=== PATIENT | male | born 1995 | race Hispanic/Latino ===

== ENCOUNTER 2018-12-24 17:38 | Emergency (ER) | payer OTHER ==
[2018-12-24] MEDS ORDERED: ONDANSETRON HCL 4 MG/2 ML VIAL ONE ×2 (17:59→21:33)
[2018-12-24] MEDS ORDERED: SODIUM CHLORIDE 0.9% 1000ML 1,000 ML IV ONE ×3 (18:00→22:18)
[2018-12-24 18:10] LABS: APPEARANCE,URINE Clear (CLEAR); BILIRUBIN,URINE Negative (NEGATIVE); COLOR,URINE Yellow (YELLOW); GLUCOSE, URINE (UA) Negative (NEGATIVE); KETONES,URINE Negative (NEGATIVE); LEUKOCYTE ESTERASE ,URINE Negative (NEGATIVE); NITRATE,URINE Negative (NEGATIVE); OCCULT BLOOD,URINE Negative (NEGATIVE); PROTEIN,URINE Negative (NEGATIVE); UROBILINOGEN,URINE 0.2 mg/dL (0.2-1.0)
[2018-12-24 18:10] LABS: BASOPHILS % (AUTO) 0.6 % (0.0-5.0); EOSINOPHILS % (AUTO) 0.7 % (0.0-8.0); HEMATOCRIT 45.7 % (42-54); LYMPHOCYTES % (AUTO) 4.3 % (21.0-51.0); MEAN CORPUSCULAR HEMOGLOBIN 30.7 pg (27.0-33.0); MEAN CORPUSCULAR HGB CONC 35.3 g/dL (32.0-36.0); MEAN CORPUSCULAR VOLUME 87.1 fL (79-99); MONOCYTES % (AUTO) 5.7 % (3.0-13.0); NEUTROPHILS % (AUTO) 88.7 % (40.0-77.0); NUCLEATED RED BLOOD CELLS 0.1 % (0.0-0.19); PLATELET COUNT (AUTO) 222 K/uL (130-400); RED BLOOD CELL COUNT(AUTO) 5.24 MIL/uL (4.50-6.20); RED CELL DISTRIBUTION WIDTH 12.8 % (11.0-15.5); WHITE BLOOD COUNT (AUTO) 20.1 K/uL (4.8-10.8)
[2018-12-24 18:52] LABS: POTASSIUM 3.5 mmol/L (3.5-5.1)
[2018-12-24 18:56] LABS: ALBUMIN 4.4 g/dL (3.5-5.0); BILIRUBIN,TOTAL 2.4 mg/dL (0.2-1.0); INR 0.95 (0.85-1.15); PARTIAL THROMBOPLASTIN TIME 33.5 SEC (26.3-35.5); TOTAL PROTEIN, SERUM 8.5 g/dL (6.0-8.3)
[2018-12-24] MEDS ORDERED: ACETAMINOPHEN EXTRA STRENGTH 500 MG TABLET ONE ×2 (19:10→23:52)
[2018-12-24] MEDS ORDERED: IOHEXOL-350 75 ML VIAL IV ONE (20:05)
[2018-12-24] MEDS ORDERED: LEVOFLOXACIN 500 MG/D5W 100 ML 100 ML ONE (20:31)
[2018-12-24] MEDS ORDERED: METRONIDAZOLE 500MG/100ML BAG 100 ML ONE (20:31)
[2018-12-24] MEDS ORDERED: IBUPROFEN 200 MG TAB ONE (22:39)
== END 2018-12-25 00:06 | disposition home or self-care (01) ==
LOC: EDH 17:38
DX: A09 Infectious gastroenteritis and colitis, unspecified (principal); E86.0 Dehydration
CPT/HCPCS: 36415; 74177; 80053; 81003; 82150; 82270; 82550; 83605 ×2; 83690; 85025; 85610; 85730; 87040 ×2; 87804 ×2; 93005; 96361 ×2; 96365; 96366; 96368; 96375; 96376; 99285; J1956; J2405 ×2; J3490; J7030 ×3; Q9967

== ENCOUNTER 2019-12-04 22:20 | Emergency (ER) | payer OTHER ==
[2019-12-04] MEDS ORDERED: KETOROLAC TROMETHAMINE 60 MG/2 ML VIAL ONE (23:57)
== END 2019-12-05 01:30 | disposition home or self-care (01) ==
LOC: EDH 22:20
DX: R07.9 Chest pain, unspecified (principal); Z87.891 Personal history of nicotine dependence
CPT/HCPCS: 71046; 93005; 96372; 99283; J1885

== ENCOUNTER 2022-02-21 10:46 | Emergency (ER) | payer OTHER ==
[~2022-02-21] VITALS: Ht 172.7 cm; Wt 108.9 kg
[2022-02-21 10:50] VITALS: BP 131/77
[2022-02-21] MEDS ORDERED: IBUPROFEN 600 MG TABLET PO ONE (11:30)
[2022-02-21] MEDS ORDERED: P-EP-94 PO (11:48)
== END 2022-02-21 12:19 | disposition home or self-care (01) ==
LOC: EDH 10:46
DX: J06.9 Acute upper respiratory infection, unspecified (principal); Z20.822 Contact with and (suspected) exposure to COVID-19; Z79.1 Long term (current) use of non-steroidal anti-inflammatories (NSAID)
CPT/HCPCS: 99283; 87635; 87880; 87804 ×2; C9803

== ENCOUNTER 2022-04-23 01:40 | Emergency (ER) | payer OTHER ==
[~2022-04-23] VITALS: Ht 172.7 cm; Wt 104.3 kg
[~2022-04-23 01:40] MED LIST: P-EP-94 PO
[2022-04-23 03:59] LABS: BASOPHILS % (AUTO) 0.2 % (0.0-5.0); EOSINOPHILS % (AUTO) 1.8 % (0.0-8.0); HEMATOCRIT 46.1 % (42-54); LYMPHOCYTES % (AUTO) 8.3 % (21.0-51.0); MEAN CORPUSCULAR HEMOGLOBIN 30.2 pg (27.0-33.0); MEAN CORPUSCULAR HGB CONC 35.1 g/dL (32.0-36.0); MEAN CORPUSCULAR VOLUME 85.8 fL (79-99); MONOCYTES % (AUTO) 7.9 % (3.0-13.0); NEUTROPHILS % (AUTO) 81.2 % (40.0-77.0); PLATELET COUNT (AUTO) 210 K/uL (130-400); RED BLOOD CELL COUNT(AUTO) 5.37 MIL/uL (4.50-6.20); RED CELL DISTRIBUTION WIDTH 12.2 % (11.0-15.5); WHITE BLOOD COUNT (AUTO) 12.7 K/uL (4.8-10.8)
[2022-04-23] MEDS ORDERED: 0.9%NACL 1000ML 1,000 ML IV ONE (04:00)
[2022-04-23] MEDS ORDERED: ONDANSETRON 4MG INJ IVP ONE ×2 (04:00→05:00)
[2022-04-23 04:14] LABS: CREATININE 0.9 mg/dL (0.5-1.5); POTASSIUM 3.5 mmol/L (3.5-5.1)
[2022-04-23 04:18] LABS: ALBUMIN 4.1 g/dL (3.5-5.0); TOTAL PROTEIN, SERUM 7.9 g/dL (6.0-8.3)
[2022-04-23] MEDS ORDERED: 0.9%NACL 1000ML 1,000 ML IV STA (04:52)
[2022-04-23] MEDS ORDERED: PANTOPRAZOLE 40 MG/VIAL IVP ONE (05:00)
[2022-04-23] MEDS ORDERED: AZITHROMYCIN 250 MG TABLET PO ONE (05:00)
[2022-04-23] MEDS ORDERED: PANT40GR PO (07:06)
[2022-04-23 07:13] VITALS: BP 112/66
== END 2022-04-23 07:20 | disposition home or self-care (01) ==
LOC: EDH 01:40
DX: K29.20 Alcoholic gastritis without bleeding (principal); Z20.822 Contact with and (suspected) exposure to COVID-19
CPT/HCPCS: 99284; 96374; 87635; 96361; 96375; 80053; 83690; 85025; 87804 ×2; 36415; 96376; C9803; J7030; J2405 ×2; C9113

== ENCOUNTER 2023-12-16 23:09 | Emergency (ER) | payer SELFPAY ==
[~2023-12-16] VITALS: Ht 172.7 cm; Wt 111.1 kg
[~2023-12-16 23:09] MED LIST changes: +PANT40GR PO
[2023-12-16 23:26] VITALS: BP 160/80; PULSE 85; RESP 16; O2SAT 98
[2023-12-16] MEDS: teTANUS/diphthERIA TOXOID [ADULT] 0.5 ML VIAL IM ONE (23:38)
== END 2023-12-17 00:20 | disposition home or self-care (01) ==
LOC: EDH 23:09
DX: S61.412A Laceration without foreign body of left hand, initial encounter (principal); Z79.899 Other long term (current) drug therapy; Z90.49 Acquired absence of other specified parts of digestive tract; W26.0XXA Contact with knife, initial encounter; Y93.89 Activity, other specified; Y92.89 Other specified places as the place of occurrence of the external cause; Y99.8 Other external cause status
CPT/HCPCS: 12001; 90471; 90714

== ENCOUNTER 2023-12-25 19:21 | Emergency (ER) | payer OTHER ==
[~2023-12-25] VITALS: Ht 172.7 cm; Wt 117.0 kg
[2023-12-25 19:23] VITALS: BP 147/77; PULSE 66; RESP 20; TEMP 98.1
== END 2023-12-25 19:54 | disposition home or self-care (01) ==
LOC: EDH 19:21
DX: S61.412D Laceration without foreign body of left hand, subsequent encounter (principal); Z48.02 Encounter for removal of sutures; Z79.899 Other long term (current) drug therapy; X58.XXXD Exposure to other specified factors, subsequent encounter
CPT/HCPCS: 99281

== ENCOUNTER 2024-08-17 22:54 | Emergency (ER) | payer OTHER ==
[~2024-08-17] VITALS: Ht 172.7 cm; Wt 115.7 kg
--- NOTE | 2024-08-17 22:58 | NUR ---
COVID, FLU AND STREP SWABS COLLECTED AND SENT
[2024-08-17 23:32] LABS: SARS-CoV-2, RNA, NAAT NEGATIVE SARS CoV-2 (NEGATIVE)
[2024-08-17 23:37] LABS: RAPID GROUP A STREP positive (NEGATIVE)
[2024-08-17 23:41] LABS: INFLUENZA TYPE A NEGATIVE FOR TYPE A (NEGATIVE); INFLUENZA TYPE B NEGATIVE FOR TYPE B (NEGATIVE)
[2024-08-18] MEDS: ceFAZolin SODIUM 2 GM VIAL IVP STA (00:49)
[2024-08-18] MEDS ORDERED: CEPH500B PO (00:54)
--- NOTE | 2024-08-18 00:55 | ERN ---
General Chief Complaint: Sore Throat Stated Complaint: SORE THROAT Time Seen by MD: 23:07 Source: patient History of Present Illness Initial Comments [age] year year old healthy male who has had a sore throat for a week with difficulty talking and and eating. He has been taking 250 mg of azithromycin with no improvement in his symptoms. Timing/Duration: 1 week Allergies: Coded Allergies: No Known Allergies (Unverified Allergy, Unknown, 02/21/22) Home Meds Active Scripts Pantoprazole Sodium (Pantoprazole Sodium) 40 Mg Granpkt.dr, 40 MG PO BID for 3 Days, #9 PACK Prov:JOANN MUNGUIA MD 04/23/22 Loratadine/Pseudoephedrine (Claritin-D 12 Hour Tablet) 1 Each Tab.er.12h, 1 EACH PO BID, #12 TAB Prov:KIANA MARTINEZ 02/21/22 Past Medical History Past Medical History: No Pertinent History Past Surgical History: Appendectomy Social History Social History: ETOH ROS Dictation Patient also feels a sinus stuffiness Constitutional: (+) chills, (+) fever EENTM: (-) eye pain, (-) blurred vision, (-) tearing, (-) double vision, (-) ear pain, (-) ear discharge, (-) nose pain, (-) nose congestion, (-) throat pain, (-) Throat swelling, (-) mouth pain, (-) tooth pain, (-) mouth swelling, (-) other documentation Respiratory: (+) cough Cardiovascular: (-) chest pain, (-) edema, (-) palpitations, (-) syncope, (-) dyspnea on exertion, (-) other documentation Gastrointestinal/Abdominal: (-) nausea, (-) vomiting, (-) diarrhea, (-) abdo ryder pain, (-) abdominal distention, (-) constipation, (-) rectal bleeding, (-) dark stool/melena, (-) other documentation Musculoskeletal: (-) Neck pain, (-) back pain, (-) Flank Pain, (-) joint pain, (-) joint swelling, (-) muscle pain, (-) muscle stiffness, (-) gout, (-) other documentation Skin: (-) laceration, (-) contusion, (-) abrasion, (-) abscess, (-) rash, (-) change in color, (-) change in hair, (-) change in nails, (-) diaphoresis, (-) dryness, (-) other documentation Physical Exam Physical Exam Dictation Patient difficulty talking with a very quiet voice. General Appearance: (+) mild distress Orientation: (+) alert Head/Face Trauma: No Eye: bilateral eye normal inspection, bilateral eye PERRL, bilateral eye EOMI Ear, Nose, Throat Comment Definitely erythema in the posterior pharynx Respiratory: (+) chest non-tender, (+) lungs clear, (+) well ventilated Heart: (+) regular, (+) no gallop Results Laboratory and Microbiology Lab and Micro Result Laboratory Tests Test 08/17/24 22:56 Influenza Type A Antigen NEGATIVE FOR TYPE A Influenza Type B Antigen NEGATIVE FOR TYPE B SARS-CoV-2, RNA, NAAT NEGATIVE SARS CoV-2 Group A Streptococcus Rapid positive (NEGATIVE) *A MDM Nasal swabs were ordered by the nurse and the patient is positive for strep throat. I will give him 2 g of IV Ancef push and discharge him with a week's course of Keflex. ED Course Orders Procedure Category Date Status Time Covid Rna Naat LAB 08/17/24 Complete 22:57 Influenza Type A & B, LAB 08/17/24 Complete Rapid 22:57 Rapid (Group A Strep) LAB 08/17/24 Complete 22:57 Cefazolin Sodium PHA 08/18/24 Complete (Ancef) 00:38 Current Medications Medications (Trade) Dose Ordered Sig/Bea Route PRN Reason Start Time Stop Time Status Last Admin Dose Admin Cefazolin Sodium (Ancef) 2 gm ONCE STAT IVP 08/18/24 00:38 08/18/24 00:41 DC Vital Signs Date Time Temp Pulse Resp B/P (MAP) Pulse Ox O2 Delivery O2 Flow Rate FiO2 08/17/24 22:55 98.1 87 20 148/85 99 Room Air DX & DISP Disposition: Discharge Departure Impression: Primary Impression: Strep sore throat Condition: Stable Scripts Cephalexin Monohydrate (Keflex) 500 Mg Cap 500 MG PO QID for 7 Days, #28 CAP Prov: JENNIFER VACA MD 08/18/24 Referrals: CADENCE BELLO (PCP) JENNIFER VACA MD Aug 18, 2024 00:55
[2024-08-18 01:21] VITALS: BP 144/83; PULSE 81; RESP 18; TEMP 98.4; O2SAT 98
== END 2024-08-18 01:22 | disposition home or self-care (01) ==
LOC: EDH 22:54
DX: J02.0 Streptococcal pharyngitis (principal); Z20.822 Contact with and (suspected) exposure to COVID-19; Z79.2 Long term (current) use of antibiotics; Z79.899 Other long term (current) drug therapy; Z90.49 Acquired absence of other specified parts of digestive tract
CPT/HCPCS: 99283; 87635; 87880; 87804 ×2; 96374; J0690

== ENCOUNTER 2024-11-09 22:55 | Emergency (ER) | payer OTHER ==
[~2024-11-09] VITALS: Ht 172.7 cm; Wt 117.7 kg
[~2024-11-09 22:55] MED LIST changes: +CEPH500B PO
--- NOTE | 2024-11-09 23:12 | EKG ---
[facility] Test Date: 2024-11-09 Test Time: 23:09:00 Pat Name: NICOLE ANAYA Department: [facility] Room: Gender: M Project Manager: [id number] : 1995 Requested By: RITU WANG Order Number: [id number] Reading MD: Cleveland Lainez Measurements Intervals [place] Rate: 67 P: 18 NH: 134 QRS: 35 QRSD: 93 T: 26 QT: 393 QTc: 415 Interpretive Statements Sinus rhythm Compared to ECG 12/05/2019 00:15:23 No significant changes Electronically Signed On 11-11-2024 00:01:33 CDT by Cleveland Lainez Please click the below link to view image of tracing.
[2024-11-09 23:13] LABS: APPEARANCE,URINE CLEAR (CLEAR); GLUCOSE, URINE (UA) NEGATIVE (NEGATIVE); LEUKOCYTE ESTERASE ,URINE NEGATIVE Leu/uL (NEGATIVE); NITRATE,URINE NEGATIVE (NEGATIVE); OCCULT BLOOD,URINE NEGATIVE (NEGATIVE)
[2024-11-09 23:15] LABS: ADD UA MICROSCOPIC NO
[2024-11-09 23:17] LABS: IMMATURE GRANULOCYTE ABSOLUTE 0.05 K/uL (0-1); NUCLEATED RED BLOOD CELLS 0.0 % (0.0-0.19); PLATELET COUNT (AUTO) 232 K/uL (130-400); RED BLOOD CELL COUNT(AUTO) 4.72 MIL/uL (4.50-6.20); RED CELL DISTRIBUTION WIDTH 12.0 % (11.0-15.5); WHITE BLOOD COUNT (AUTO) 12.0 K/uL (4.8-10.8)
[2024-11-09 23:20] LABS: AMPHET/METH SCREEN,URINE NEGATIVE (NEGATIVE); BARBITURATE SCREEN, URINE NEGATIVE (NEGATIVE); CANNABINOID SCREEN,URINE NEGATIVE (NEGATIVE); COCAINE SCREEN,URINE NEGATIVE (NEGATIVE)
[2024-11-09 23:25] LABS: CREATININE 0.8 mg/dL (0.5-1.3); GLOMERULAR FILTR. RATE CALC 124.0 mL/min (>90); GLUCOSE,RANDOM 109.0 mg/dL (70-105); SODIUM SERUM 141.0 mmol/L (136-145); UREA NITROGEN, BLOOD 14.0 mg/dL (7-18)
[2024-11-09 23:35] LABS: CREATINE KINASE, TOTAL 147.0 U/L (21-232)
[2024-11-09] MEDS: MAG/ALUM/SIMETH 30 ML UDCUP PO ONE (23:37)
[2024-11-09] MEDS: LIDOCAINE HCL 2% VISCOUS 15 ML UDCUP PO ONE (23:37)
[2024-11-09] MEDS: DICYCLOMINE HCL 10 MG/5 ML ML PO ONE (23:37)
--- NOTE | 2024-11-10 00:02 | ERN ---
ED Note History of Present Illness Stated Complaint: CHEST PAIN Chief Complaint: Chest Pain Time Seen by MD: 22:59 Time Seen by Midlevel: 22:59 Dictation: The patient is a 29-year-old male with a history of appendectomy who presents to the emergency department with complaints of mid sternal chest pain onset two days ago associated with some shortness of breath. Patient also reports some nausea. Reports that he has had these episodes in the past and they told him he had anxiety. Patient does reports he has been under a lot of stress slightly. Denies any fevers, diarrhea or constipation. Denies any upper respiratory symptoms. Allergies: Coded Allergies: No Known Allergies (Unverified Allergy, Unknown, 02/21/22) Home Meds Active Scripts Cephalexin Monohydrate (Keflex) 500 Mg Cap, 500 MG PO QID for 7 Days, #28 CAP Prov:JENNIFER VACA MD 08/18/24 Pantoprazole Sodium (Pantoprazole Sodium) 40 Mg Granpkt.dr, 40 MG PO BID for 3 Days, #9 PACK Prov:JOANN MUNGUIA MD 04/23/22 Loratadine/Pseudoephedrine (Claritin-D 12 Hour Tablet) 1 Each Tab.er.12h, 1 EACH PO BID, #12 TAB Prov:KIANA MARTINEZ 02/21/22 Past Medical History Past Medical History: No Pertinent History Surgical History: Appendectomy Social History: ETOH RN Note Reviewed/Agreed w/PFSH: Yes Review of System Dictation Constitutional: Negative for fever,chills, and weight loss Eyes: Negative for injury, pain,redness, and discharge ENT: Negative for injury,pain or swelling Cardiovascular: Negative for palpitations, and edema positive for chest pain, Respiratory: Negative for cough, and wheezing, shortness of breath Abdomen/GI: Negative for abdominal pain, vomiting, diarrhea, and constipation positive for nausea Back: Negative for injury and pain : Negative for injury, bleeding and discharge MS/Extremity: Negative for injury and deformity Skin: Negative for rash, and discoloration Neuro: Negative for headache, weakness, numbness, tingling, and seizure Psych: Negative for suicide ideation, homicidal ideation, and hallucinations Initial Vital Sign VS Vital Signs Date Time Temp Pulse Resp B/P (MAP) Pulse Ox O2 Delivery O2 Flow Rate FiO2 11/09/24 22:56 97.0 70 16 123/80 98 Room Air 11/09/24 23:09 0 21 Physical Exam Dictation Vital Signs reviewed General Appearance: Alert, oriented x 3, no acute distress, well developed, nourished. Head and Face: non-traumatic. Eyes: PERRL, pink conjunctivas, eyelid no trauma, anterior chamber with arcus senilis. Ears: Pinnas intact and no signs of trauma or erythema ear canals clear and no discharge TM no erythema Nose: No discharge, no bleeding. Oropharynx: Mouth normal, tongue pink. pharynx clear,no erythema, tonsils no exudates, no abscesses noted, mucous membrane moist Neck: Supple, non-tender, no thyromegaly, no masses, no JVD, no bruits Breast:Deferred Chest:No tenderness, no crepitus, no paradoxical movement, no retractions Lungs:Clear, well-ventilated, symmetric, no rales, no wheezing, no rhonchi, no stridor, good breath sounds bilaterally Heart: Regular rate, regular rhythm, no murmur, no gallops Vascular: no peripheral edema, Abdomen: Soft, positive bowel sounds, nondistended, no guarding, nontender, no rebound, no masses no hepatomegaly, no splenomegaly, no Cornelius's sign, no hernias. Rectal: Deferred Genital: Deferred Neurological: Normal speech, motor function intact, sensory function intact Musculoskeletal: Neck nontender, full range of motion, back nontender, full range of motion, Extremities: nontender, full range of motion Skin: Color pink, dry, no turgor, no rash, no lacerations, no abrasions, no contusions. Lymphatic: Deferred Results (Laboratory/Radiology) Laboratory/Radiology Laboratory Tests Test 11/09/24 23:01 11/09/24 23:11 Urine Color LIGHT-YELLOW (YELLOW) Urine Appearance CLEAR (CLEAR) Urine pH 5.5 (5.0-8.0) Urine Specific [place] 1.019 (1.001-1.031) Urine Protein NEGATIVE mg/dL (NEGATIVE) Urine Glucose (UA) NEGATIVE mg/dL (NEGATIVE) Urine Ketones NEGATIVE mg/dL (NEGATIVE) Urine Occult Blood NEGATIVE (NEGATIVE) Urine Nitrate NEGATIVE (NEGATIVE) Urine Bilirubin NEGATIVE mg/dL (NEGATIVE) Urine Urobilinogen 0.2 mg/dL (0.2-1.0) Urine Leukocyte Esterase NEGATIVE Iron/uL Urine Opiates Screen NEGATIVE (NEGATIVE) Urine Barbiturates Screen NEGATIVE (NEGATIVE) Urine Phencyclidine Screen NEGATIVE (NEGATIVE) Urine Amphetamines Screen NEGATIVE (NEGATIVE) Urine Benzodiazepines Screen NEGATIVE (NEGATIVE) Urine Cocaine Screen NEGATIVE (NEGATIVE) Urine Marijuana (THC) Screen NEGATIVE (NEGATIVE) White Blood Count 12.0 K/uL (4.8-10.8) H Red Blood Count 4.72 MIL/uL (4.50-6.20) Hemoglobin 14.6 g/dL (14.0-18.0) Hematocrit 41.7 % (42-54) L Mean Corpuscular Volume 88.3 fL (79-99) Mean Corpuscular Hemoglobin 30.9 pg (27.0-33.0) Mean Corpuscular Hemoglobin Concent 35.0 g/dL (32.0-36.0) Red Cell Distribution Width 12.0 % (11.0-15.5) Platelet Count 232 K/uL (130-400) Mean Platelet Volume 10.5 fL (7.5-10.5) Immature Granulocyte % (Auto) 0.4 % (0-1) Neutrophils (%) (Auto) 59.2 % (40.0-77.0) Lymphocytes (%) (Auto) 28.0 % (21.0-51.0) Monocytes (%) (Auto) 9.1 % (3.0-13.0) Eosinophils (%) (Auto) 3.1 % (0.0-8.0) Basophils (%) (Auto) 0.2 % (0.0-5.0) Neutrophils # (Auto) 7.1 K/uL (1.8-7.7) Lymphocytes # (Auto) 3.4 K/uL (1.0-4.8) Monocytes # (Auto) 1.1 K/uL (0.1-1.0) H Eosinophils # (Auto) 0.37 K/uL (0.00-0.70) Basophils # (Auto) 0.03 K/uL (0.00-0.20) Absolute Immature Granulocyte (auto 0.05 K/uL (0-1) Nucleated Red Blood Cells 0.0 % (0.0-0.19) Sodium Level 141 mmol/L (136-145) Potassium Level 4.0 mmol/L (3.5-5.1) Chloride Level 105 mmol/L (101-111) Carbon Dioxide Level 26 mmol/L (21-32) Blood Urea Nitrogen 14 mg/dL (7-18) Creatinine 0.8 mg/dL (0.5-1.3) Glomerular Filtration Rate Calc 124 mL/min (>90) Random Glucose 109 mg/dL (70-105) H Total Calcium 8.5 mg/dL (8.5-10.1) Total Creatine Kinase 147 U/L (21-232) # Troponin I High Sensitivity 5 ng/L (4-75) Lipase 94 U/L (16-77) H REASON: CHEST PAIN ORDERING PHYSICIAN: RITU WANG MD PROCEDURE: CXR1VW - CHEST 1VW EXAM: CR Chest, 2 views. CLINICAL HISTORY: Chest pain. COMPARISON: Chest radiograph dated 12/04/2019. FINDINGS: The lungs show no infiltrates or other acute findings. No pleural effusion or pneumothorax. The cardiomediastinal silhouette is within normal limits. No acute osseous abnormality. IMPRESSION: No acute cardiopulmonary process is evident. No interval changes. /[facility] Labs Reviewed?: Yes EKG: (+) rhythm (Sinus rhythm) EKG Comment: Date:11/09/2024 Time:2309 Ventricular rate:67 TN interval:134 QRS duration:93 QT/QTc:493/415 EKG interpretation: Sinus rhythm Reviewed by ED Attending no STEMI ED Course ED Course Orders Procedure Category Date Status Time Vital Signs Per CPOE 11/09/24 Transmitted Routine 22:56 Chest 1vw RAD 11/09/24 Resulted 22:56 12 Lead Ekg Tracing- EKG 11/09/24 Complete Technical 22:56 Oxygen By Nc/Pulse Ox CPOE 11/09/24 Transmitted 22:56 Maintain Iv CPOE 11/09/24 Transmitted 22:56 Iv Insertion CPOE 11/09/24 Transmitted 22:56 Cardiac Monitoring CPOE 11/09/24 Transmitted 22:56 Pulse Oximetry With CPOE 11/09/24 Transmitted Vs And Prn 22:56 Cbc With Differential LAB 11/09/24 Complete 22:56 Activity: Br W/Brp CPOE 11/09/24 Transmitted With Assist 22:56 Creatine Kinase, Total LAB 11/09/24 Complete 22:56 Troponin I High LAB 11/09/24 Complete Sensitivity 22:56 Urinalysis Profile LAB 11/09/24 Complete 22:56 Basic Metabolic Panel LAB 11/09/24 Complete 22:56 Drug Screen Urine LAB 11/09/24 Complete 22:59 Mag/Alum/Simeth 30ml PHA 11/09/24 Complete (Maalox Plus 30ml) 23:30 Lidocaine Hcl 2% PHA 11/09/24 Complete Viscous (Lidocaine Hcl 23:30 Dicyclomine Hcl PHA 11/09/24 Complete (Bentyl 10mg/5ml 23:30 Lipase LAB 11/09/24 Complete 23:38 Current Medications Medications (Trade) Dose Ordered Sig/Bea Route PRN Reason Start Time Stop Time Status Last Admin Dose Admin Al Hydroxide/Mg Hydroxide (MAALox PLUS 30ML) 30 ml ONCE ONCE PO 11/09/24 23:30 11/09/24 23:31 DC 11/09/24 23:37 Dicyclomine HCl (Bentyl 10mg/5ml Syrup) 10 mg ONCE ONCE PO 11/09/24 23:30 11/09/24 23:31 DC 11/09/24 23:37 Lidocaine HCl (Lidocaine HCl 2% Viscous) 10 ml ONCE ONCE PO 11/09/24 23:30 11/09/24 23:31 DC 11/09/24 23:37 Vital Signs Date Time Temp Pulse Resp B/P (MAP) Pulse Ox O2 Delivery O2 Flow Rate FiO2 11/10/24 00:14 98.4 61 18 124/84 100 Room Air* 0 11/09/24 23:09 75 18 127/84 99 Room Air* 0 21 11/09/24 22:56 97.0 70 16 123/80 98 Room Air HEART Score Response (Comments) Value History: Low suspicion (0) 0 EKG: Normal 0 Age: < 45yrs (0) 0 Risk Factors: No known risk factors (0) 0 Initial Troponin: Normal limit (0) 0 HEART Score Risk: Low Risk for MACE (1-3) Total 0 Medical Decision Making MDM The patient is a 29-year-old male with a history of appendectomy who presents to the emergency department with complaints of mid sternal chest pain onset two days ago associated with some shortness of breath. Patient also reports some nausea. Reports that he has had these episodes in the past and they told him he had anxiety. Patient does reports he has been under a lot of stress slightly. Denies any fevers, diarrhea or constipation. Denies any upper respiratory symptoms. CBC showed no leukocytosis, no anemia, chemistry showed no electrolyte imbalance, slightly elevated lipase, patient with no abdominal pain. Negative troponin. EKG showed normal sinus rhythm. Chest x-ray showed no acute pathology. On physical exam patient is in no acute distress, nontoxic appearance. Patient with tenderness to palpation. Patient with low risk for cardiac etiology. Patient reports feeling better after medication administration. Labs and imaging discussed with the patient who agrees to be discharged and follow up with PCP. Differential diagnosis: ACS, pneumonia, pneumothorax, gastritis, pancreatitis, anxiety Need for hospitalization: Patient does not meet criteria for hospitalization. There are no social concerns with this patient. DX & DISP Disposition: Discharge Departure Impression: Primary Impression: Chest wall pain Condition: Stable Additional Instructions: Your labs were unremarkable. If chest x-ray was normal. Please follow up with your primary doctor in 1-2 days you can take [id number] Tylenol or Motrin for the pain. If anything worsens please return to ER. FOLLOW-UP WITH PRIMARY CARE PROVIDER IN 1 TO 2 DAYS. TAKE MEDICATIONS DIRECTED HERE IN THE EMERGENCY ROOM. OKAY TO CONTINUE HOME MEDICATIONS UNLESS OTHERWISE DISCUSSED DURING YOUR VISIT IN THE EMERGENCY ROOM TODAY. RETURN TO YOUR NEAREST EMERGENCY ROOM IF SYMPTOMS WORSEN OR IF THERE IS NO IMPROVEMENT. CALL 911 IF YOU NEED IMMEDIATE ASSISTANCE. TAKE TYLENOL [id number] NEEDED AND IF NO CONTRAINDICATIONS ARE PRESENT. INCREASE ORAL HYDRATION. A WOUND CULTURE OR URINE CULTURE WAS ORDERED HERE IN THE EMERGENCY ROOM DEPARTMENT PLEASE FOLLOW-UP WITH PRIMARY CARE PROVIDER AND ADVISE THEM TO GET REPEAT PORTS FROM OUR FACILITY. IF YOU HAD ANY KATRINA WRAP/SPLINTS THAT WERE APPLIED HERE, PLEASE DO NOT REMOVE THEM UNTIL YOU SEE YOUR PRIMARY CARE OR SPECIALTY. 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
--- NOTE | 2024-11-10 00:06 | HMCIMG ---
EXAM: CR Chest, 2 views. CLINICAL HISTORY: Chest pain. COMPARISON: Chest radiograph dated 12/04/2019. FINDINGS: The lungs show no infiltrates or other acute findings. No pleural effusion or pneumothorax. The cardiomediastinal silhouette is within normal limits. No acute osseous abnormality. IMPRESSION: No acute cardiopulmonary process is evident. No interval changes. /[place]
[2024-11-10 00:14] VITALS: BP 124/84; PULSE 61; RESP 18; TEMP 98.5; O2SAT 100
== END 2024-11-10 00:35 | disposition home or self-care (01) ==
LOC: EDH 22:55
DX: R07.89 Other chest pain (principal); Z79.899 Other long term (current) drug therapy; Z90.49 Acquired absence of other specified parts of digestive tract
CPT/HCPCS: 36415; 71045; 80048; 80305; 81003; 82550; 83690; 84484; 85025; 93005; 99285